=== PATIENT | male | born 1955 | race Caucasian/White ===

== ENCOUNTER 2021-04-06 11:40 | Observation (INO) | payer OTHER, BC ==
[2021-04-06 12:17] LABS: ACTIVATED PTT 28.5 SECONDS (25.2-36.5)
[2021-04-06 12:21] LABS: INR 1.12 (0.83-1.09); PROTHROMBIN TIME (PATIENT) 12.4 SEC (9.7-13.0)
[2021-04-06 12:24] LABS: BILIRUBIN,TOTAL 0.9 mg/dl (0.2-1); CALCIUM 8.7 mg/dl (8.5-10); CREATININE 0.9 mg/dl (0.55-1.3); TOT PROT 7.1 g/dl (6.4-8.2)
[2021-04-06] MEDS ORDERED: ASPIRIN 81 MG CHEWABLE TABLETS PO ONE (13:22)
[2021-04-06] MEDS ORDERED: ASPIRIN 81 MG CHEWABLE TABLETS ONE (13:26)
[2021-04-06 13:34] LABS: BASO % 0.5 % (0-2.0); EOS % 0.8 % (0-4.5); HEMATOCRIT 40.6 % (35.4-49); HEMOGLOBIN 14.7 GM/dL (11.7-16.9); LYMPH % 20.9 % (8-40); MCH 33.9 pg (25.7-33.7); MCHC 36.3 g/dl (32.0-35.9); MEAN CELL VOLUME 93.4 fl (80-96); MEAN PLT VOLUME 9.7 fl (7.5-11.1); MONO % 15.8 % (3.8-10.2); PLATELET COUNT 189 10^3/uL (134-434); RBC 4.34 M/mm3 (4.00-5.60); WHITE BLOOD COUNT 6.3 K/mm3 (4.0-10.0)
[2021-04-06] MEDS ORDERED: LIDOCAINE 5% TOPICAL PATCH ONE (16:21)
[2021-04-06] MEDS ORDERED: LOSARTAN POTASSIUM 25 MG TABLET PO ONE (16:24)
[2021-04-06] MEDS: LIDOCAINE 5% TOPICAL PATCH TP SCH (16:35)
[2021-04-06] MEDS ORDERED: LOSARTAN POTASSIUM 25 MG TABLET ONE (16:44)
[2021-04-06 18:16] LABS: CHOLESTEROL 216 mg/dl (50-200); HDL CHOLESTEROL 40 mg/dl (40-60); TRIGLYCERIDES 194 mg/dl (0-150)
[2021-04-06 20:05] LABS: LDL CHOLESTEROL (ONLY SJRH) 137 mg/dL (5-100)
[2021-04-06 22:31] VITALS: BMI 33.6
[2021-04-07] MEDS: LIDOCAINE PATCH REMOVAL MC SCH ×2 (04:40→21:04)
[2021-04-07] MEDS ORDERED: LORazepam 1 MG TABLET PO PRN (09:19)
[2021-04-07 09:27] LABS: BASO % 0.6 % (0-2.0); EOS % 1.1 % (0-4.5); HEMATOCRIT 39.6 % (35.4-49); HEMOGLOBIN 14.4 GM/dL (11.7-16.9); MCH 34.2 pg (25.7-33.7); MCHC 36.3 g/dl (32.0-35.9); MEAN CELL VOLUME 94.1 fl (80-96); MONO % 12.8 % (3.8-10.2); NEUT % 60.5 % (42.8-82.8); PLATELET COUNT 189 10^3/uL (134-434); RBC 4.21 M/mm3 (4.00-5.60); RDW 13.8 % (11.9-15.9); WHITE BLOOD COUNT 6.6 K/mm3 (4.0-10.0)
[2021-04-07] MEDS: LIDOCAINE 5% TOPICAL PATCH TP SCH (10:50)
[2021-04-07] MEDS: FOLIC ACID 1 MG TABLET (FP) PO SCH (10:50)
[2021-04-07] MEDS: LOSARTAN POTASSIUM 25 MG TABLET PO SCH (10:50)
[2021-04-07] MEDS: THIAMINE HCL 100 MG TABLET (FP) PO SCH (10:50)
[2021-04-07] MEDS: ENOXAPARIN NA (PORCINE) 40 MG/0.4 ML DISP.SYRIN SQ SCH (10:50)
[2021-04-07] MEDS: ASPIRIN COATED 81 MG TABLET.EC PO SCH (10:50)
[2021-04-07 13:05] LABS: CALCIUM 8.8 mg/dl (8.5-10); CREATININE 0.9 mg/dl (0.55-1.3)
[2021-04-07 13:06] LABS: TOT PROT 6.6 g/dl (6.4-8.2)
[2021-04-07 13:07] LABS: BILIRUBIN,TOTAL 0.7 mg/dl (0.2-1)
[2021-04-07] MEDS ORDERED: ACETAMINOPHEN 325 MG TABLET (FP) PO PRN (15:37)
[2021-04-07] MEDS ORDERED: ATORVASTATIN CA 40 MG TABLET (FP) PO SCH (22:00)
[2021-04-08 05:03] VITALS: BP 146/72; PULSE 59; TEMP 97.8
[2021-04-08 08:06] LABS: ALBUMIN 3.8 g/dl (3.4-5.0); BILIRUBIN,TOTAL 0.9 mg/dl (0.2-1); CREATININE 0.9 mg/dl (0.55-1.3); MAGNESIUM 1.9 mg/dL (1.8-2.4); TOT PROT 6.4 g/dl (6.4-8.2)
[2021-04-08 09:13] LABS: BASO % 0.5 % (0-2.0); EOS % 0.7 % (0-4.5); HEMATOCRIT 41.5 % (35.4-49); HEMOGLOBIN 14.9 GM/dL (11.7-16.9); LYMPH % 23.8 % (8-40); MCH 33.7 pg (25.7-33.7); MCHC 35.8 g/dl (32.0-35.9); MEAN CELL VOLUME 94.2 fl (80-96); MEAN PLT VOLUME 9.4 fl (7.5-11.1); MONO % 11.3 % (3.8-10.2); NEUT % 63.7 % (42.8-82.8); PLATELET COUNT 190 10^3/uL (134-434); RBC 4.41 M/mm3 (4.00-5.60); RDW 13.8 % (11.9-15.9); WHITE BLOOD COUNT 7.6 K/mm3 (4.0-10.0)
[2021-04-08] MEDS: ENOXAPARIN NA (PORCINE) 40 MG/0.4 ML DISP.SYRIN SQ SCH (09:33)
[2021-04-08] MEDS: ASPIRIN COATED 81 MG TABLET.EC PO SCH (09:33)
[2021-04-08] MEDS: LOSARTAN POTASSIUM 25 MG TABLET PO SCH (09:34)
[2021-04-08] MEDS: FOLIC ACID 1 MG TABLET (FP) PO SCH (09:34)
[2021-04-08] MEDS: LIDOCAINE 5% TOPICAL PATCH TP SCH (09:34)
[2021-04-08] MEDS: THIAMINE HCL 100 MG TABLET (FP) PO SCH (09:34)
== END 2021-04-08 13:21 | disposition home or self-care (01) ==
LOC: FER 11:40 → FM/S 13:27 → INTOOBSV 13:27
PROVIDERS: ATTEND Nurse Practitioner Acute Care
PROC: 3E013GC Introduction of Other Therapeutic Substance into Subcutaneous Tissue, Percutaneous Approach (ICD-10-PCS; principal; 2021-04-06)
DX: R07.89 Other chest pain (principal); I45.10 Unspecified right bundle-branch block; I10 Essential (primary) hypertension; M54.30 Sciatica, unspecified side; E78.5 Hyperlipidemia, unspecified; E66.9 Obesity, unspecified; R51.9 Headache, unspecified; Z68.33 Body mass index [BMI] 33.0-33.9, adult; Z85.828 Personal history of other malignant neoplasm of skin; Z86.010 Personal history of colon polyps; Z29.8 Encounter for other specified prophylactic measures; Z79.1 Long term (current) use of non-steroidal anti-inflammatories (NSAID)
CPT/HCPCS: 36415; 71046-TC-FY; 80053; 80061; 81003; 83036; 83735; 84443; 84484; 85025; 85610; 85730; 93005; 96372; 99285-25; C9803; G0378; U0003; U0005

== ENCOUNTER 2023-10-12 13:49 | Emergency (ER) | payer OTHER, BC ==
[2023-10-12 14:13] VITALS: BP 150/94; PULSE 74; RESP 16; TEMP 98.6; BMI 34.0
== END 2023-10-12 14:20 | disposition home or self-care (01) ==
LOC: FER 13:49
DX: I10 Essential (primary) hypertension (principal); F41.9 Anxiety disorder, unspecified
CPT/HCPCS: 99282-25